=== PATIENT | male | born 1995 | race Caucasian/White ===

== ENCOUNTER 2017-05-30 18:34 | Emergency (ER) | payer MEDICAID ==
[~2017-05-30] VITALS: Ht 167.6 cm; Wt 68.0 kg
[~2017-05-30 18:34] MED LIST: FLUO15OI15 TP; TAMS0.4C32 PO
[2017-05-30] MEDS ORDERED: TAM75C PO (19:18)
[2017-05-30] MEDS ORDERED: GUAI10SY2 PO (19:18)
[2017-05-30 19:54] VITALS: BP 122/75
== END 2017-05-30 19:56 | disposition home or self-care (01) ==
LOC: ER 18:34
DX: B34.9 Viral infection, unspecified (principal); Z79.899 Other long term (current) drug therapy
CPT/HCPCS: 99283

== ENCOUNTER 2018-09-26 21:46 | Emergency (ER) | payer MEDICAID ==
[~2018-09-26] VITALS: Ht 165.1 cm; Wt 68.8 kg
[2018-09-26] MEDS ORDERED: NAPR-56 PO (23:57)
[2018-09-26] MEDS ORDERED: PENI250T2 PO (23:57)
[2018-09-27] MEDS ORDERED: HYDROcodone/acetaminophen 10/325mg tab PO ONE
[2018-09-27 00:09] VITALS: BP 115/71
== END 2018-09-27 00:11 | disposition home or self-care (01) ==
LOC: ER 21:47
DX: K08.89 Other specified disorders of teeth and supporting structures (principal); Z79.2 Long term (current) use of antibiotics; Z79.899 Other long term (current) drug therapy
CPT/HCPCS: 99283

== ENCOUNTER 2019-03-28 07:54 | Emergency (ER) | payer MEDICAID ==
[~2019-03-28] VITALS: Ht 165.1 cm; Wt 81.0 kg
[2019-03-28 08:49] LABS: CLARITY,URINE CLEAR (Clear); COLOR,URINE STRAW (Yellow); GLUCOSE, URINE NEGATIVE (Neg); KETONES,URINE NEGATIVE (Neg); LEUKOCYTE ESTERASE ,URINE NEGATIVE (Neg); NITRITES, URINE NEGATIVE (Neg); OCCULT BLOOD,URINE NEGATIVE (Neg); PH,URINE 6.5 (4.8-8.0); PROTEIN,URINE NEGATIVE (Neg); UROBILINOGEN,URINE 0.2 E.U/dL (0.2-1.0)
[2019-03-28 08:50] LABS: UA COLLECTION TYPE VOIDED
[2019-03-28] MEDS ORDERED: ondansetron/PF 4mg/2ml inj IV ONE (08:50)
[2019-03-28] MEDS ORDERED: normal saline 1000ML IV soln IVB ONE (08:50)
[2019-03-28] MEDS ORDERED: ketorolac trometh. 30mg/ml inj. IV ONE (08:50)
[2019-03-28 09:29] VITALS: BP 114/63
[2019-03-28] MEDS ORDERED: KETO10TA2 PO (09:47)
[2019-03-28] MEDS ORDERED: ONDA4TAB6 PO (09:47)
[2019-03-28 10:00] LABS: BASOPHILS % (AUTO) 0.6 % (0-1); EOSINOPHILS # (AUTO) 0.2 X10'3 (0-0.9); EOSINOPHILS % (AUTO) 2.3 % (0-6); HEMATOCRIT 43.7 % (42.0-52.0); HEMOGLOBIN 14.6 g/dl (14.0-17.9); LYMPHOCYTES % (AUTO) 37.8 % (21-51); MEAN CORPUSCULAR HEMOGLOBIN 29.9 PG (27.0-31.0); MEAN CORPUSCULAR HGB CONC 33.3 g/dL (33.0-36.5); MEAN CORPUSCULAR VOLUME 89.7 FL (78-98); MEAN PLATELET VOLUME 7.3 FL (7.4-10.4); MONOCYTES # (AUTO) 0.8 X10'3 (0-0.9); MONOCYTES % (AUTO) 9.9 % (2-12); NEUTROPHILS # (AUTO) 3.9 X10'3 (1.8-7.7); NEUTROPHILS % (AUTO) 49.4 % (42-75); PLATELET COUNT 266 X10'3 (140-440); RED BLOOD COUNT 4.87 X10'6 (4.70-6.10); RED CELL DISTRIBUTION WIDTH 12.9 % (11.5-14.5); WHITE BLOOD COUNT 7.9 X10'3 (4.5-11.0)
[2019-03-28 10:09] LABS: ALANINE AMINOTRANSFERASE 30 U/L (12-78); ALBUMIN 3.9 G/DL (3.4-5.0); ALBUMIN/GLOBULIN RATIO 1.3 (1.1-1.5); ALKALINE PHOSPHATASE 59 IU/L (46-116); ANION GAP 8 (8-16); ASPARTATE AMINO TRANSFERASE 14 U/L (10-37); BILIRUBIN,TOTAL 0.3 MG/DL (0.1-1.0); BLOOD UREA NITROGEN 9 MG/DL (7-18); BUN/CREATININE RATIO 13.4 (5.4-32.0); CALCIUM 8.5 MG/DL (8.5-10.1); CHLORIDE 108 MMOL/L (99-107); CREATININE 0.67 MG/DL (0.60-1.10); GLUCOSE 91 MG/DL (70-104); LIPASE 115 U/L (73-393); POTASSIUM 4.3 MMOL/L (3.5-5.1); SODIUM 142 MMOL/L (135-145); TOTAL CARBON DIOXIDE 25.8 MMOL/L (24-32); TOTAL PROTEIN 6.9 G/DL (6.4-8.2); eGFR > 90 ML/MIN
== END 2019-03-28 10:16 | disposition home or self-care (01) ==
LOC: ER 07:54
DX: N20.0 Calculus of kidney (principal); Z87.442 Personal history of urinary calculi; Z79.899 Other long term (current) drug therapy
CPT/HCPCS: 36415; 74176; 80053; 81003; 83690; 85025; 96374; 96375; 99284; J1885; J2405; J7030

== ENCOUNTER 2021-10-29 14:48 | Emergency (ER) | payer MEDICAID, OTHER ==
[~2021-10-29] VITALS: Ht 167.6 cm; Wt 88.2 kg
[~2021-10-29 14:48] MED LIST changes: +KETO10TA2 PO; +ONDA4TAB6 PO
[2021-10-29 15:49] LABS: BASOPHILS # (AUTO) 0.1 X10'3 (0-0.2); BASOPHILS % (AUTO) 0.6 % (0-1); EOSINOPHILS # (AUTO) 0.3 X10'3 (0-0.9); EOSINOPHILS % (AUTO) 2.4 % (0-6); HEMATOCRIT 45.4 % (42.0-52.0); HEMOGLOBIN 15.1 g/dl (14.0-17.9); LYMPHOCYTES % (AUTO) 36.1 % (21-51); MEAN CORPUSCULAR HEMOGLOBIN 29.1 PG (27.0-31.0); MEAN CORPUSCULAR HGB CONC 33.3 g/dL (33.0-36.5); MEAN CORPUSCULAR VOLUME 87.2 FL (78-98); MEAN PLATELET VOLUME 6.9 FL (7.4-10.4); MONOCYTES # (AUTO) 0.9 X10'3 (0-0.9); MONOCYTES % (AUTO) 7.8 % (2-12); NEUTROPHILS # (AUTO) 5.9 X10'3 (1.8-7.7); NEUTROPHILS % (AUTO) 53.1 % (42-75); PLATELET COUNT 342 X10'3 (140-440); RED CELL DISTRIBUTION WIDTH 12.7 % (11.5-14.5); WHITE BLOOD COUNT 11.1 X10'3 (4.5-11.0)
[2021-10-29 15:58] LABS: ALANINE AMINOTRANSFERASE 82 U/L (12-78); ALBUMIN 4.4 G/DL (3.4-5.0); ALBUMIN/GLOBULIN RATIO 1.2 (1.1-1.5); ALKALINE PHOSPHATASE 71 IU/L (46-116); ANION GAP 9 (8-16); ASPARTATE AMINO TRANSFERASE 27 U/L (10-37); BILIRUBIN,TOTAL 0.9 MG/DL (0.1-1.0); BLOOD UREA NITROGEN 16 MG/DL (7-18); BUN/CREATININE RATIO 17.8 (5.4-32.0); CALCIUM 9.3 MG/DL (8.5-10.1); CHLORIDE 103 MMOL/L (99-107); GLUCOSE 77 MG/DL (70-104); POTASSIUM 4.1 MMOL/L (3.5-5.1); SODIUM 139 MMOL/L (135-145); TOTAL CARBON DIOXIDE 26.8 MMOL/L (24-32); TOTAL PROTEIN 8.2 G/DL (6.4-8.2); eGFR > 90 ML/MIN
[2021-10-29 16:55] VITALS: BP 132/86
== END 2021-10-29 16:57 | disposition home or self-care (01) ==
LOC: ER 14:49
DX: R07.9 Chest pain, unspecified (principal); F41.9 Anxiety disorder, unspecified; F12.10 Cannabis abuse, uncomplicated; Z87.442 Personal history of urinary calculi; Z79.899 Other long term (current) drug therapy
CPT/HCPCS: 36415; 71045; 80053; 83880; 84484; 85025; 93005; 99285

== ENCOUNTER 2024-01-03 14:49 | Emergency (ER) | payer MEDICAID ==
[~2024-01-03] VITALS: Ht 167.6 cm; Wt 80.9 kg
[2024-01-03 14:51] VITALS: BP 138/92; PULSE 78; RESP 16; TEMP 97.4; O2SAT 99
== END 2024-01-03 18:08 | disposition home or self-care (01) ==
LOC: ER 14:50
DX: R10.10 Upper abdominal pain, unspecified (principal); F41.9 Anxiety disorder, unspecified; F12.90 Cannabis use, unspecified, uncomplicated; Z79.899 Other long term (current) drug therapy; V89.2XXA Person injured in unspecified motor-vehicle accident, traffic, initial encounter; Y93.89 Activity, other specified; Y92.89 Other specified places as the place of occurrence of the external cause; Y99.8 Other external cause status
CPT/HCPCS: 99281

== ENCOUNTER 2024-07-09 18:47 | Emergency (ER) | payer MEDICAID, OTHER ==
[~2024-07-09] VITALS: Ht 167.6 cm; Wt 84.0 kg
[2024-07-09 19:09] VITALS: BP 148/91; PULSE 78; RESP 16; O2SAT 98
--- NOTE | 2024-07-09 19:22 | Physician Documentation ---
History of Present Illness General Chief Complaint: See Chief Complaint Stated Complaint: ALLERGIES Time Seen by MD: 19:25 Primary Medical Doctor: none History of Present Illness Initial Comments This 28-year-old male with history of seasonal allergies presents with two days of sinus congestion without fever, cough, or other acute symptoms or concerns. Medication Reconciliation Allergies: Coded Allergies: No Known Allergies (Unverified , 01/03/24) Scheduled Fluocinonide Oint* (Lidex Oint*), 1 APPLIC TP BID Fluticasone Propionate (Flonase), 2 SPRAYS BOTHNARES DAILY Ketorolac Tromethamine (Ketorolac Tromethamine), 1 TAB PO Q8H Loratadine (Loratadine), 1 TAB PO DAILY Ondansetron Hcl (Zofran), 1 TAB PO Q8H Pseudoephedrine Hcl (Pseudoephedrine), 1 TAB PO Q12H Sodium Chloride/Sodium Bicarb (Nasa Mist Saline [place]), 2 SPRAYS BOTHNARES Q8H Tamsulosin Hcl (Tamsulosin Hcl), 1 CAP PO DAILY Past Medical History Past Medical History: Kidney Stones, Anxiety Past Surgical History: no surgical history Alcohol Use: None Drug Use: marijuana Lives In: Home Review of Systems ROS Nasal congestion as stated above in the HPI, otherwise all systems are reviewed and negative. Physical Exam Physical Exam Vital Signs: Heart Rate: 78, Respiratory Rate: 16, BP: 148/91, Pulse Oximetry: 98, Weight: 84.000 Oxygen Flow Rate: 0 Physical Exam VITALS: Reviewed and as above. GENERAL: Alert, nontoxic appearing, no apparent distress. RESPIRATORY: No increased work of breathing, no respiratory distress, speaking in full clear sentences Progress Results/Orders Results/Orders Vital Signs 07/09/24 19:09 Pulse 78 Resp 16 B/P (MAP) 148/91 Pulse Ox 98 O2 Flow Rate 0 Medical Decision Making Findings He was put in year old male with history of seasonal allergies presents with two days of sinus congestion, patient reports no other acute symptoms or concerns, sinus congestion in his consistent with allergic rhinitis. Remainder of physical exam was benign patient's vital signs are stable he is appropriate outpatient follow up. Patient provided home care instructions and careful return to care precautions which she verbalized understanding of. Patient provided prescriptions for medications for allergic rhinitis. Differential Diagnosis Sinusitis, headache, URI, foreign body Departure Time of Disposition: 19:15 Disposition: 01 HOME / SELF CARE / HOMELESS Impression: Primary Impression: Sinus congestion Condition: Improved Discharge Instructions: Allergic Rhinitis, Adult, [id number], How to Perform a Sinus Rinse, [id number] Additional Instructions: Recommend taking Claritin or similar antihistamine daily during allergy season, use nasal saline rinses 2 to 3 times a day, use Flonase once a day (use nasal rinse prior to using Flonase), for continued/breakthrough sinus congestion use pseudoephedrinem (from behind the pharmacy counter). It may take 2-3 days to begin seeing relief from this combination of medications as the inflammation that is currently present does take some time to reduce. You may use ibuprofen and or Tylenol as needed for pain as directed by [id number] packaging. Please follow up with your primary care provider in the next few days. Please return to the emergency department for any new or worsening concerning symptoms including but not limited to increasing sinus pain or a fever over 100.4 that does not lower with ibuprofen or Tylenol. Referrals: NO PRIMARY CARE PROVIDER (PCP) Prescriptions Pseudoephedrine Hcl (Pseudoephedrine) 120 Mg Tablet.er 1 TAB PO Q12H for 10 Days, #20 TAB 0 Refills Prov: NAHID BURNHAM 07/09/24 Sodium Chloride/Sodium Bicarb (Nasa Mist Saline [place]) 0.9 % [place] 2 SPRAYS BOTHNARES Q8H for 7 Days, #75 ML 0 Refills Prov: NAHID BURNHAM 07/09/24 Fluticasone Propionate (Flonase) 16 Gm [place].susp 2 SPRAYS BOTHNARES DAILY for 30 Days, #16 GM Prov: NAHID BURNHAM 07/09/24 Loratadine (Loratadine) 10 Mg Tablet 1 TAB PO DAILY for allergy symptoms for 30 Days, #30 TAB 0 Refills Prov: NAHID BURNHAM 07/09/24 Education Educated: Patient Educated regarding: diagnosis, treatment, prognosis, need for follow up Signature Scribe Signature: No scribe Attestation: The note accurately reflects work and decisions made by me.RASHEED William 07/09/24 20:32 NAHID BURNHAM Jul 09, 2024 19:21
[2024-07-09] MEDS ORDERED: LORA10TA7 PO (19:24)
[2024-07-09] MEDS ORDERED: SODI75SP BOTHNARES (19:24)
[2024-07-09] MEDS ORDERED: PSEU120T84 PO (19:24)
[2024-07-09] MEDS ORDERED: FLUT16SP2 BOTHNARES (19:24)
== END 2024-07-09 22:55 | disposition home or self-care (01) ==
LOC: ER 18:47
DX: R09.81 Nasal congestion (principal); F12.90 Cannabis use, unspecified, uncomplicated; F41.9 Anxiety disorder, unspecified; Z87.442 Personal history of urinary calculi; Z79.899 Other long term (current) drug therapy
CPT/HCPCS: 99282; 99283

== ENCOUNTER 2024-09-25 12:03 | Emergency (ER) | payer OTHER ==
[~2024-09-25] VITALS: Ht 167.6 cm; Wt 72.1 kg
[~2024-09-25 12:03] MED LIST changes: +FLUT16SP2 BOTHNARES; +LORA10TA7 PO; +PSEU120T84 PO; +SODI75SP BOTHNARES
[2024-09-25 12:16] VITALS: TEMP 98.3
[2024-09-25 12:42] LABS: MEAN PLATELET VOLUME 7.0 FL (7.4-10.4); RED CELL DISTRIBUTION WIDTH 12.5 % (11.5-14.5)
[2024-09-25 13:00] LABS: CREATININE 1.01 MG/DL (0.60-1.10); TOTAL CARBON DIOXIDE 25.9 MMOL/L (24-32); eCRCL 97 ML/MIN; eGFR 87 ML/MIN
--- NOTE | 2024-09-25 14:35 | Physician Documentation ---
History of Present Illness Chief Complaint: Abdominal Pain Stated Complaint: SEVERE ABD PAIN Time Seen by MD: 14:27 Primary Medical Doctor: none HPI This is a 29-year-old gentleman with no significant past medical history who presents for evaluation of generalized abdominal pain that began without any obvious trigger, trauma provocation. Mostly located in the upper abdomen. Describes it as sharp. Not ripping, not tearing, not waxing and waning. The particular palliating or aggravating factors, not affected by food intake or defecation. Never experienced this in the past. Accompanied by nausea without vomiting. Does report that when the pain came on, it was strong, and he developed bilateral hand in the face tingling. The tingling is now resolved. He smokes weed, does not not do drugs, does not smoke cigarettes. Medication Reconciliation Allergies: Coded Allergies: No Known Allergies (Unverified , 01/03/24) Scheduled Fluocinonide Oint* (Lidex Oint*), 1 APPLIC TP BID Fluticasone Propionate (Flonase), 2 SPRAYS BOTHNARES DAILY Ketorolac Tromethamine (Ketorolac Tromethamine), 1 TAB PO Q8H Loratadine (Loratadine), 1 TAB PO DAILY Ondansetron Hcl (Zofran), 1 TAB PO Q8H Pseudoephedrine Hcl (Pseudoephedrine), 1 TAB PO Q12H Sodium Chloride/Sodium Bicarb (Nasa Mist Saline [place]), 2 SPRAYS BOTHNARES Q8H Tamsulosin Hcl (Tamsulosin Hcl), 1 CAP PO DAILY Past Medical History Past Medical History: Kidney Stones, Anxiety Past Surgical History: no surgical history Alcohol Use: None Drug Use: marijuana Lives In: Home Review of Systems ROS 10 point review of systems was performed and unless noted above in HPI is negative for acute process/complaint. Physical Exam Vital Signs: Temperature: 98.3, Source: Temporal, Heart Rate: 77, Respiratory Rate: 15, BP: 125/63, Pulse Oximetry: 98, Weight: 72.100 Physical Exam GENERAL: Awake, alert, oriented, GCS 15, no apparent distress, non-toxic appearing, answers questions, follows commands appropriately. HEENT: Atraumatic, normocephalic, pupils equal, extraocular muscles intact, sclerae anicteric, mucus membranes moist, oropharynx is clear, no stridor. NECK: supple, full active range of motion, trachea midline, no thyromegaly, no lymphadenopathy, no JVD. CARDIOVASCULAR: regular rate/rhythm, no murmurs/gallops/rubs, Pulses are 2+ in all extremities and symmetric. Capillary refill less than 2 seconds. PULMONARY: Nonlabored, good air movement ,no respiratory distress, speaking in full sentences, clear to auscultation bilaterally, no wheezing, no ronchi, no rales, no accessory muscle use. GASTROINTESTINAL: Soft, epigastric tenderness to palpation reproducing chief complaint, non-distended, normal active bowel sounds, no organomegaly, no pulsatile masses, no CVA tenderness. NEUROLOGIC: Lucid with normal mental status. Normal facial symmetry. Moves all extremities symmetrically and with purpose. No truncal ataxia. Speech is fluid without evidence of dysarthria or aphasia, no focal deficits appreciated. MUSCULOSKELETAL: There is full range of motion of all extremities. There is no joint pain or joint swelling or joint erythema. There is no muscle pain or tenderness or swelling. EXTREMITIES: warm, well-perfused, no cyanosis, no clubbing, no edema, no acute deformities. Skin: warm, dry, no rashes or lesions, no jaundice, no petechiae orpurpura. No ecchymosis. PSYCHIATRIC: Normal affect, normal insight, normal concentration. Focused exam: [] Guarding or rebound Progress Results/Orders Results/Orders Orders - BLU ABDULLAHI DO Urinalysis, Cult If Indicated (09/25/24 12:18) Completed Orders - BLU ABDULLAHI DO Cbc/Diff (09/25/24 12:18) BMP (09/25/24 12:18) Lipase (09/25/24 12:18) CMP (09/25/24 12:18) Vital Signs 09/25/24 12:16 Temp 98.3 Pulse 77 Resp 15 B/P (MAP) 125/63 Pulse Ox 98 Laboratory Tests Test 09/25/24 12:33 White Blood Count 10.5 Red Blood Count 4.83 Hemoglobin 14.6 Hematocrit 42.8 Mean Corpuscular Volume 88.5 Mean Corpuscular Hemoglobin 30.2 Mean Corpuscular Hemoglobin Concent 34.1 Red Cell Distribution Width 12.5 Platelet Count 323 Mean Platelet Volume 7.0 L Neutrophils (%) (Auto) 58.4 Lymphocytes (%) (Auto) 31.6 Monocytes (%) (Auto) 6.1 Eosinophils (%) (Auto) 3.3 Basophils (%) (Auto) 0.6 Neutrophils # (Auto) 6.1 Lymphocytes # (Auto) 3.3 Monocytes # (Auto) 0.6 Eosinophils # (Auto) 0.3 Basophils # (Auto) 0.1 CBC Comment Sodium Level 142 Potassium Level 3.9 Chloride Level 107 Carbon Dioxide Level 25.9 Anion Gap 9 Blood Urea Nitrogen 14 Creatinine 1.01 Estimated GFR/1.73 m2 87 BUN/Creatinine Ratio 13.9 Glucose Level 75 Calcium Level 9.3 Total Bilirubin 0.8 Aspartate Amino Transf (AST/SGOT) 17 Alanine Aminotransferase (ALT/SGPT) 42 Alkaline Phosphatase 68 Total Protein 8.3 H Albumin 4.3 Globulin 4.0 Albumin/Globulin Ratio 1.1 Lipase 23 Chemistry Comments Medical Decision Making Findings Facility Status: [facility], [facility] process The plan was discussed with the patient, who demonstrates clear understanding of the plan and is in agreement with the plan unless otherwise noted in the chart. All questions have been answered, all concerns were addressed unless otherwise documented. I was available throughout their ED stay for frequent reassessment and questions. Differential Diagnoses (considered and possible or likely): [Differential diagnosis considered includes acute appendicitis, acute cholecystitis, pancreatitis, gastritis, PUD, diverticulitis, mesenteric ischemia, abdominal aortic aneurysm, bowel obstruction, enteritis, colitis, fecal impaction, volvulus, IBS, inflammatory bowel disease, specific food intolerance, p eritonitis, perforated viscous, malignancy, UTI, abscess, and abdominal pain NOS. History, physical exam, and workup exclude many of the more serious causes listed above. ] ??Differential Diagnoses (considered and unlikely, not requiring evaluation currently): [Aortic/great vessels dissection was considered but it is unlikely b ased on absence of ripping, tearing, migratory chest pain, absence of syncope or focal neurologic deficits, physical examination indicating equal and symmetric pulses.] MDM Data Please see HPI for the following: Independent Historians and external Records Review. Historian: [Patient] Independent Historians: ?[None] Medication Management: [Reviewed medication list] Social History and determinants: [Reviewed] Please see the body of the note for the following: Any independent interpretations of ECG, imaging studies. All vitals signs/haemodynamics, ordered tests were independently reviewed and interpreted by myself. Nursing triage complaint and vitals reviewed, additional nursing notes were reviewed as available and I agree unless otherwise noted or documented in contradiction in the chart Vital Signs: Independently reviewed Labs: Independently interpreted Imaging: Independently interpreted Old Medical Records: Independently reviewed, see HPI for relevant summary and information Pulse Oximetry: [97%] interpreted as [normal on room air] by me [Agile Test Lead: [Regular Rate, Regular rhythm, no ectopy, NSR] reviewed and interpreted by me] Additionally notably showing: [Hemodynamics reviewed. The patient isn't febrile, not tachycardic, no evidence of hypotension respiratory distress. Laboratory studies are unremarkable including normal lipase, normal renal function. Imaging shows no acute intra-abdominal process. Incidental finding of left breast nodule.] Tests considered but not ordered include: [Breast ultrasound can be done on an outpatient basis. Right upper quadrant ultrasound has been considerably does not appear to be necessary given normal labs and his exam] Social Determinants of Health Impact: Patient was evaluated in [facility], [facility] [place] to healthcare due to below par ratio of patient to medical providers. [] Comorbid Conditions Impacting Present Evaluation and Care/Treatment: [None] Management Discussions with other Healthcare Providers: [None] Treatment and Disposition Medication Management (Given or considered): [Nausea and pain management]. See EMR for details Consideration for Hospitalization/Escalation/Deescalation of Care: Admission for observation has been considered, [however the patient is able to tolerate p.o., their symptoms are controlled, they are able to rely on oral medications, and their chief complaint/diagnosis can be managed on outpatient basis.] ?ED Course:?[No clinical deterioration.] ?Shared decision making:?[Patient is hemodynamically stable for discharge home with follow with their primary care provider. [ ] Specific and cautious return precautions provided and discussed with full understanding. Any incidental findings were also discussed and follow up recommendations given. [] All questions answered. Patient/family were able to verbalize back return precautions. Patient/family agree to plan. Copies of imaging and laboratory studies were provided.] Code status:?FULL Please see the full Electronic Medical Record for full details of nursing documentation, medications list, other records of complete past medical history and conditions, vital signs, laboratory studies, and any radiologic study interpretations by radiologists. Portions of this note were completed using [employer] dictation software and as a result there may exist minor errors in spelling. I have reviewed elements of past family and social history and agree as included in note. Departure Disposition: 01 HOME / SELF CARE / HOMELESS Impression: Primary Impression: Epigastric abdominal pain Additional Impression: Breast nodule Condition: Improved Discharge Instructions: Abdominal Pain (Nonspecific) Additional Instructions: Despite of the workup done today, there is no clear explanation for your abdominal pain. Return to emergency department if you develop nausea, vomiting, unable to take fluids in, if the pain gets worse, if you are not able to have bowel movement or passed gas, feel free to return with a any other concerns. The CT today showed incidental finding of left breast nodule. You need to obtain outpatient ultrasound to make sure this is not cancer. Referrals: NO PRIMARY CARE PROVIDER (PCP) Education Educated: Patient Educated regarding: diagnosis, treatment, prognosis, need for follow up Signature Scribe Signature: No scribe Attestation: This note accurately reflects clinical decisions, work performed by myself, DO BRADLY Monique NICHOLAS M DO Sep 25, 2024 14:35
[2024-09-25] MEDS ORDERED: iohexol 300mg/ml 100ml inj. ONE (14:45)
[2024-09-25] MEDS: normal saline 1000ml 1,000 ML IV ONE (15:12)
[2024-09-25] MEDS: ketorolac trometh 30MG/ML vial 30 MG/ML VIAL IV ONE (15:13)
[2024-09-25] MEDS: ondansetron/PF 4mg/2ml inj IV ONE (15:13)
--- NOTE | 2024-09-25 15:22 | RADIOLOGY REPORT ---
Exam: CT CT ABDOMEN PELVIS W/ IV CONTRAST History: generalized abd pain, nausea COMPARISON: None Technique: Multidetector spiral CT of the abdomen and pelvis was performed from lung bases to pubic symphysis. Intravenous contrast was administered during this examination. Portal venous imaging was obtained. Axial, coronal and sagittal multiplanar reformats were performed by the technologist on a separate workstation. Radiation Dose : Abdomen/Pelvis: CTDIvol 20 mGy, DLP 1035 mGy*cm. CONTRAST: Type of contrast: Omni 300 Contrast injected: 100 mL Findings: Lung Bases: No acute or significant lung base finding. Normal heart size. No pleural or pericardial effusion. Liver: Diffuse hepatic steatosis. Gallbladder and biliary Tree: Unremarkable Spleen: Unremarkable Pancreas: The pancreas is normal in appearance without focal lesions or abnormal enhancement. Adrenal Glands: Unremarkable Kidneys: No hydronephrosis. Bladder: Unremarkable Bowel: The stomach is grossly normal in appearance. Small bowel and colon are normal in caliber and d istribution. Normal appendix is visualized in the right lower quadrant without findings of appendicit is. Ascites: Absent Lymphadenopathy: Subcentimeter retroperitoneal and mesenteric lymph nodes noted. Abdominal wall and Mesentery: Unremarkable. Vasculature: The visualized abdominal aorta is normal in size and caliber. Abdominal and pelvic vess els demonstrate normal enhancement. Pelvic Organs: Unremarkable Musculoskeletal: No aggressive focal bony lesions, acute fractures or dislocation. Left breast nodule . IMPRESSION: 1. No acute abdominal or pelvic finding. Diffuse hepatic steatosis. Left breast nodule, likely gyneco mastia. This can be further evaluated with ultrasound. Radiation optimization: All CT scans at this facility use at least one of these dose optimization jazmyne hniques: Automated exposure control mA and/or kV adjustment per patient size (includes targeted exams where dose is matched to clinical indication) or iterative reconstruction. HS:Y
[2024-09-25 16:16] VITALS: BP 109/79; PULSE 84; RESP 16; O2SAT 98
== END 2024-09-25 16:18 | disposition home or self-care (01) ==
LOC: ER 12:04
DX: R10.13 Epigastric pain (principal); N63.20 Unspecified lump in the left breast, unspecified quadrant; F41.9 Anxiety disorder, unspecified; F12.90 Cannabis use, unspecified, uncomplicated; Z72.89 Other problems related to lifestyle
CPT/HCPCS: 36415; 74177; 80053; 83690; 85025; 96361; 96374; 96375; 99285; J1885; J2405; J7030; Q9967